=== PATIENT | male | born 1995 | race Caucasian/White ===

== ENCOUNTER 2017-05-02 09:13 | Emergency (ER) | payer OTHER ==
[2017-05-02 09:17] VITALS: TEMP 98.1
--- NOTE | 2017-05-02 09:21 | PDOC ---
History of Present Illness - General History Source: Patient Exam Limitations: No Limitations - History of Present Illness Initial Comments: 05/02/17 09:59 Patient is a 21 year old male with a significant past medical history of Asthma who present to the ED with complaints of chest pain that began this morning. 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 Patient reports chest pain began this morning suddenly while at work. Patient states the chest pain is a pressured pain that he rates as a 4/10 in intensity. He reports Left arm numbness and pain secondary to chest pain. Patient reports experiencing episodes of sweating secondary to chest pain. Patient states a similar episode 1 year ago which lasted 15 minutes. As per nurse at job site, patient had pulse rate of 144. Denies SOB, panic, nerves. Denies nausea, vomiting. Denies leg swelling, out of state travel. Denies any other symptoms. Allergies:Seafood Social history: Family Hx: Grandmother pulmonary embolism (53), Grandfather heartattack (55). Social drinker. No smoking. No illicit drugs. Surgical history: None PMD: None <Rosalino Salmon - Last Filed: 05/02/17 09:59> <Yoselin Springer - Last Filed: 05/02/17 10:47> - General Chief Complaint: Chest Pain Stated Complaint: CHEST PAIN Time Seen by Provider: 05/02/17 09:21 Past History <Rosalino Salmon - Last Filed: 05/02/17 09:59> - Past Medical History Other medical history: NONE - Suicide/Smoking/Psychosocial Hx Smoking History: Current some day smoker Number of Cigarettes Smoked Daily: 2 Information on smoking cessation initiated: Yes 'Breaking Loose' booklet given: 05/02/17 Hx Alcohol Use: Yes (SOCIAL) Drug/Substance Use Hx: No Substance Use Type: None <Yoselin Springer - Last Filed: 05/02/17 10:47> - Past Medical History Allergies/Adverse Reactions: Allergies Allergy/AdvReac Type Severity Reaction Status Date / Time SEAFOOD Allergy Uncoded 05/02/17 09:17 Home Medications: Ambulatory Orders NK [No Known Home Medication] 05/02/17 Review of Systems - Review of Systems Able to Perform ROS?: Yes Comments:: 05/02/17 09:59 GENERAL/CONSTITUTIONAL: No fever or chills. No weakness. HEAD, EYES, EARS, NOSE AND THROAT: No change in vision. No ear pain or discharge. No sore throat. GASTROINTESTINAL: No nausea, vomiting, diarrhea or constipation. GENITOURINARY: No dysuria, frequency, or change in urination. CARDIOVASCULAR: +Chest pain. No shortness of breath. RESPIRATORY: No cough, wheezing, or hemoptysis. MUSCULOSKELETAL: No joint or muscle swelling or pain. No neck or back pain. SKIN: No rash NEUROLOGIC: No headache, vertigo, loss of consciousness, or change in strength/ sensation. ENDOCRINE: No increased thirst. No abnormal weight change. HEMATOLOGIC/LYMPHATIC: No anemia, easy bleeding, or history of blood clots. ALLERGIC/IMMUNOLOGIC: No hives or skin allergy. All Other Systems: Reviewed and Negative <Rosalino Salmon - Last Filed: 05/02/17 09:59> *Physical Exam - Vital Signs Last Vital Signs Temp Pulse Resp BP Pulse Ox 98.1 F 78 20 109/64 98 05/02/17 09:14 05/02/17 09:14 05/02/17 09:14 05/02/17 09:14 05/02/17 09:25 - Physical Exam Comments: 05/02/17 09:59 GENERAL: +No pleuritic component to pain. Awake, alert, and fully oriented, in no acute distress HEAD: No signs of trauma EYES: PERRLA, EOMI, sclera anicteric, conjunctiva clear ENT: Auricles normal inspection, hearing grossly normal, nares patent, oropharynx clear without exudates. Moist mucosa NECK: Normal ROM, supple, no lymphadenopathy, JVD, or masses LUNGS: Breath sounds equal, clear to auscultation bilaterally. No wheezes, and no crackles HEART: Regular rate and rhythm, normal S1 and S2, no murmurs, rubs or gallops ABDOMEN: Soft, nontender, normoactive bowel sounds. No guarding, no rebound. No masses EXTREMITIES: Normal range of motion, no edema. No clubbing or cyanosis. No cords, erythema, or tenderness NEUROLOGICAL: Cranial nerves II through XII grossly intact. Normal speech, normal gait SKIN: Warm, Dry, normal turgor, no rashes or lesions noted. <Rosalino Salmon - Last Filed: 05/02/17 09:59> - Vital Signs Last Vital Signs Temp Pulse Resp BP Pulse Ox 98.1 F 78 20 109/64 98 05/02/17 09:14 05/02/17 09:14 05/02/17 09:14 05/02/17 09:14 05/02/17 09:14 <Yoselin Springer - Last Filed: 05/02/17 10:47> Heart Score/ECG Review - ECG Intrepretation Comment:: 05/02/17 09:30 sinus at 73, nl axis, nl interval, early repol anterior leads, t wave inversions III which are nonspecific, no acute changes <Yoselin Springer - Last Filed: 05/02/17 10:47> ED Treatment Course - LABORATORY CBC & Chemistry Diagram: 05/02/17 09:35 05/02/17 09:42 - ADDITIONAL ORDERS Additional order review: 05/02/17 09:35 RBC 4.30 MCV 94.6 MCHC 34.7 RDW 12.2 MPV 8.4 Neutrophils % 55.1 Lymphocytes % 32.5 Monocytes % 7.0 Eosinophils % 4.5 Basophils % 0.9 <Rosalino Salmon - Last Filed: 05/02/17 09:59> - LABORATORY CBC & Chemistry Diagram: 05/02/17 09:35 05/02/17 09:42 <Yoselin Springer - Last Filed: 05/02/17 10:47> Medical Decision Making - Medical Decision Making 05/02/17 09:48 a/p: 21yo male with chest pressure after vaping this AM and had palpitations -low suspicion for ACS/atypical cp -will check labs, electrolytes, tsh -ekg -cxr -no risk factors for ACS 05/02/17 10:44 discussed labs and imaging results. Pt states he wants to see a cooker soda and will follow up as an oupt. Pt denies sob/diaphoresis/ radiation of the pain in the ED. Pt resting comfortably. Pt stable for d/c to home. <Yoselin Springer - Last Filed: 05/02/17 10:47> *DC/Admit/Observation/Transfer - Attestations Scribe Attestion: 05/02/17 10:00 Documentation prepared by Rosalino Luis Antonio, acting as medical lead for Yoselin Springer DO. <Rosalino Salmon - Last Filed: 05/02/17 09:59> - Discharge Dispostion Admit: No - Attestations Physician Attestion: 05/02/17 10:47 I, Dr. Yoselin Springer DO, attest that this document has been prepared under my direction and personally reviewed by me in its entirety. I further attest, that it accurately reflects all work, treatment, procedures and medical decision -making performed by me. <Yoselin Springer - Last Filed: 05/02/17 10:47> Diagnosis at time of Disposition: Atypical chest pain - Discharge Dispostion Disposition: HOME Condition at time of disposition: Stable - Referrals Referrals: Toy Gibbons MD [Staff Physician] - Teto Eason MD [Staff Physician] - - Patient Instructions Printed Discharge Instructions: DI for Atypical Chest Pain Additional Instructions: Please follow up with your PMD. Please return to the ED with any further concerns. - Post Discharge Activity Forms/Work/School Notes: Back to Work
[2017-05-02 09:48] LABS: BASOPHIL 0.9 % (0-2.0); EOSINOPHIL 4.5 % (0-4.5); MCH 32.8 pg (25.7-33.7); MCHC 34.7 g/dl (32.0-35.9); MEAN CELL VOLUME 94.6 fl (80-96); MEAN PLT VOLUME 8.4 fl (7.5-11.1); NEUTROPHILS 55.1 % (42.8-82.8); PLATELET COUNT 170 K/MM3 (134-434); RDW 12.2 % (11.9-15.9); WHITE BLOOD COUNT 6.4 K/mm3 (4.0-10.0)
[2017-05-02 10:12] LABS: ALBUMIN 4.1 g/dl (3.4-5.0); ANION GAP 3 (8-16); CALCIUM 8.6 mg/dL (8.5-10.1); CO2 30 mmol/L (21-32); CREATININE 0.8 mg/dL (0.7-1.3); GLUCOSE,RANDOM 85 mg/dL (74-106); MAGNESIUM 2.1 mg/dL (1.8-2.4); SGOT/AST 14 U/L (15-37); SGPT/ALT 19 U/L (12-78)
[2017-05-02 10:22] LABS: ALK PHOS 49 U/L (45-117); BILIRUBIN,TOTAL 0.7 mg/dL (0.2-1.0); THYROID STIMULATING HORMONE 1.73 uIU/ml (0.358-3.74); TOT PROT 7.5 g/dl (6.4-8.2)
[2017-05-02 10:32] VITALS: BP 109/67; PULSE 70
[2017-05-02] MEDS ORDERED: IBUPROFEN 600 MG TABLET (FP) PO ONE ×2 (10:44→10:48)
--- NOTE | 2017-05-02 13:06 | EKG ---
Test Reason : Blood Pressure : / mmHG Vent. Rate : 073 BPM Atrial Rate : 073 BPM P-R Int : 106 ms QRS Dur : 094 ms QT Int : 388 ms P-R-T Axes : 057 041 023 degrees QTc Int : 427 ms SINUS RHYTHM WITH SHORT HI ST ELEVATION, CONSIDER EARLY REPOLARIZATION BORDERLINE ECG NO PREVIOUS ECGS AVAILABLE Confirmed by JULIA GUZMAN MD ([id number]) on 05/02/2017 1:06:05 PM Referred By: Confirmed By:JULIA GUZMAN MD
== END 2017-05-02 10:56 | disposition home or self-care (01) ==
LOC: JER 09:13 → SUPCPDRO 09:13 → JER 10:56
DX: R07.89 Other chest pain (principal); J45.909 Unspecified asthma, uncomplicated
CPT/HCPCS: 36415; 71020-TC; 80053; 83735; 84443; 85025; 93005; 93010; 99283-25